=== PATIENT | female | born 1980 | race Caucasian/White ===

== ENCOUNTER 2022-04-21 07:50 | Inpatient (IN) | payer BC ==
[~2022-04-21 07:50] MED LIST: Albuterol 0.083% 2.5 MG/3 ML Neb Soln NEB PRN; HYDROmorphone 1 MG/ML Syringe IVPUSH PRN; Metoclopramide 10 MG/2 ML SDV IVPUSH PRN; Morphine 2 MG/ML SYRINGE IVPUSH PRN; Naloxone 0.4 MG/ML SDV IVPUSH PRN; Ondansetron 4 MG/2 ML SDV IVPUSH PRN; fentaNYL 50 MCG/ML SDV IVPUSH PRN
[2022-04-21] MEDS ORDERED: Scopolamine 1.5 MG Transdermal Patch TOP ONE (08:00)
[2022-04-21] MEDS ORDERED: Methylene Blue 50 MG/10 ML Ampule ONE (08:09)
[2022-04-21] MEDS ORDERED: Bupivacaine 0.25% 30 ML SDV ONE (08:09)
[2022-04-21] MEDS: Lactated Ringers 1,000 ML IV SCH ×2 (08:32→17:18)
[2022-04-21] MEDS ORDERED: Lidocaine 2% 5 ML SDV ONE (08:38)
[2022-04-21] MEDS ORDERED: Rocuronium Bromide 50 MG/5 ML Syringe ONE ×2 (08:38→10:08)
[2022-04-21] MEDS ORDERED: Sugammadex Sodium 200 MG/2 ML VIAL ONE (08:38)
[2022-04-21] MEDS ORDERED: Midazolam 1 MG/ML 2 ML SDV ONE (08:38)
[2022-04-21] MEDS ORDERED: fentaNYL 100 MCG/2 ML SDV ONE ×2 (08:38→11:14)
[2022-04-21] MEDS ORDERED: Ondansetron 4 MG/2 ML SDV ONE (08:38)
[2022-04-21] MEDS ORDERED: Dexamethasone 4 MG/ML 5 ML MDV ONE (08:38)
[2022-04-21] MEDS ORDERED: Propofol 200 MG/20 ML SDV ONE (08:38)
[2022-04-21 09:00] LABS: CARBON DIOXIDE,CO2 30.4 mmol/L (21.0-32.0)
[2022-04-21] MEDS ORDERED: ceFAZolin 2 GM Vial ONE (09:18)
[2022-04-21] MEDS ORDERED: Water For Injection, Sterile 20 ML ONE (09:34)
[2022-04-21] MEDS ORDERED: Ropivacaine 0.5% 5 MG/ML 30 ML SDV ONE (10:11)
[2022-04-21] MEDS ORDERED: HYDROmorphone 2 MG/ML Syringe ONE (10:17)
[2022-04-21] MEDS ORDERED: Fluorescein 5 ML Vial ONE (11:04)
[2022-04-21] MEDS ORDERED: Furosemide 40 MG/4 ML VIAL ONE (12:04)
[2022-04-21] MEDS ORDERED: Ketorolac 30 MG/ML SDV ONE (13:14)
[2022-04-21] MEDS ORDERED: Ketorolac 30 MG/ML SDV IVPUSH ONE (13:14)
[2022-04-21] MEDS ORDERED: Acetaminophen/oxyCODONE 325-5 MG Tab PO PRN (13:48)
[2022-04-21] MEDS ORDERED: Ondansetron 4 MG/2 ML SDV IVPUSH PRN ×2 (13:48→15:32)
[2022-04-21] MEDS ORDERED: Promethazine 25 MG/ML SDV IM PRN (13:48)
[2022-04-21] MEDS ORDERED: HYDROmorphone 2 MG/ML Syringe IVPUSH PRN (13:48)
[2022-04-21] MEDS ORDERED: Naloxone 0.4 MG/ML SDV IVPUSH PRN (15:32)
[2022-04-21] MEDS ORDERED: diphenhydrAMINE 25 MG Cap PO PRN (15:32)
[2022-04-21] MEDS ORDERED: diphenhydrAMINE 50 MG/ML SDV IVPUSH PRN (15:32)
[2022-04-21] MEDS ORDERED: HYDROmorphone/Normal Saline 10 MG/50 ML PCA IV SCH ×2 (15:45→17:15)
[2022-04-21] MEDS ORDERED: Lactated Ringers 1,000 ML IV SCH (19:00)
[2022-04-21] MEDS: HYDROmorphone/Normal Saline 10 MG/50 ML PCA IV SCH (19:00)
[2022-04-21] MEDS: Ketorolac 30 MG/ML SDV IVPUSH SCH (19:55)
[2022-04-21] MEDS: Montelukast 10 MG Tab PO SCH (22:04)
[2022-04-22] MEDS: Ketorolac 30 MG/ML SDV IVPUSH SCH ×3 (01:16→13:15)
[2022-04-22 05:59] LABS: POTASSIUM,K 4.6 mmol/L (3.5-5.1)
[2022-04-22] MEDS: HYDROmorphone/Normal Saline 10 MG/50 ML PCA IV SCH (07:09)
[2022-04-22] MEDS: Acetaminophen/oxyCODONE 325-5 MG Tab PO PRN ×2 (16:06→20:49)
[2022-04-22] MEDS ORDERED: metFORMIN 500 MG Tab PO SCH (21:00)
[2022-04-22] MEDS: Montelukast 10 MG Tab PO SCH (21:05)
[2022-04-23] MEDS: Acetaminophen/oxyCODONE 325-5 MG Tab PO PRN ×2 (00:47→04:46)
[2022-04-23] MEDS ORDERED: Ibuprofen 800 MG Tab PO PRN (08:30)
[2022-04-23 09:57] VITALS: BP 122/72; PULSE 90
== END 2022-04-23 10:00 | disposition home or self-care (01) | DRG 513 ==
LOC: MW.SDS 07:50 → MW.OB 13:49
PROVIDERS: ADMIT Obstetrics & Gynecology; ATTEND Obstetrics & Gynecology
PROC: 0UT90ZZ Resection of Uterus, Open Approach (ICD-10-PCS; principal; 2022-04-21)
PROC: 0UT70ZZ Resection of Bilateral Fallopian Tubes, Open Approach (ICD-10-PCS; 2022-04-21)
PROC: 0TJB8ZZ Inspection of Bladder, Via Natural or Artificial Opening Endoscopic (ICD-10-PCS; 2022-04-21)
DX: N92.1 Excessive and frequent menstruation with irregular cycle (principal); N80.9 Endometriosis, unspecified; E28.2 Polycystic ovarian syndrome; N84.0 Polyp of corpus uteri; Z79.84 Long term (current) use of oral hypoglycemic drugs; Z79.899 Other long term (current) drug therapy
CPT/HCPCS: 36415; 80048; 84703; 85025; 86850; 86900; 86901; A9270-GY; J0131; J0690; J1100; J1170; J1885; J1940; J2250; J2405; J2704; J2795; J3010; J3490; J7120